=== PATIENT | male | born 1945 | race Caucasian/White ===

== ENCOUNTER 2023-10-23 13:56 | Outpatient (RCR) | payer MEDICARE, OTHER, SELFPAY | END 2023-10-23 23:59 | disposition home or self-care (01) | LOC: RPT 13:56 | PROVIDERS: ATTENDING PHYSICIAN Student in an Organized Health Care Education/Training Program | DX: M76.32 Iliotibial band syndrome, left leg (principal); M25.572 Pain in left ankle and joints of left foot; Z73.6 Limitation of activities due to disability | CPT/HCPCS: 97010; 97110; 97112; 97162 ==

== ENCOUNTER 2023-10-28 12:27 | Outpatient (RCR) | payer MEDICARE, OTHER, SELFPAY | END 2023-10-30 07:36 | disposition home or self-care (01) | LOC: RPT 12:27 | PROVIDERS: ATTENDING PHYSICIAN Student in an Organized Health Care Education/Training Program | DX: M76.32 Iliotibial band syndrome, left leg (principal); M25.572 Pain in left ankle and joints of left foot; Z73.6 Limitation of activities due to disability | CPT/HCPCS: 97010; 97110 ==

== ENCOUNTER → 2024-06-11 13:34 | Outpatient (REF) | payer MEDICARE, OTHER, SELFPAY | LOC: HWRAD 13:34 | PROVIDERS: ATTENDING PHYSICIAN Family Medicine | DX: R35.0 Frequency of micturition (principal) | CPT/HCPCS: 76770 ==

== ENCOUNTER → 2024-10-07 12:47 | Outpatient (REF) | payer MEDICARE, OTHER, SELFPAY | LOC: RCS 12:47 | PROVIDERS: ATTENDING PHYSICIAN Family Medicine | DX: I10 Essential (primary) hypertension (principal); H53.2 Diplopia; I25.10 Atherosclerotic heart disease of native coronary artery without angina pectoris | CPT/HCPCS: 93306; 93880 ==

== ENCOUNTER → 2024-11-02 10:33 | Outpatient (REF) | payer MEDICARE, OTHER, SELFPAY | LOC: PAVMRI 10:33 | PROVIDERS: ATTENDING PHYSICIAN Family Medicine | DX: H53.2 Diplopia (principal); H53.8 Other visual disturbances; H53.123 Transient visual loss, bilateral | CPT/HCPCS: 70543; 70544; 70553; A9575 ==

== ENCOUNTER → 2025-03-09 13:01 | Outpatient (REF) | payer MEDICARE, OTHER, SELFPAY | LOC: RAD 13:01 | PROVIDERS: ATTENDING PHYSICIAN Family Medicine | DX: M25.552 Pain in left hip (principal) | CPT/HCPCS: 73502 ==

== ENCOUNTER 2025-06-20 23:57 | Observation (INO) | payer MEDICARE, OTHER, SELFPAY ==
[2025-06-20] VITALS (7 sets, daily range): BP systolic 113–137; BP diastolic 61–76
[2025-06-20 17:05] LABS: Hematocrit 44.2 % (39.0-52.0); Hemoglobin 15.5 g/dL (13.0-18.0); Mean Corp Hgb Conc. 35.1 g/dL (33.0-37.0); Mean Corpuscular Volume 90.8 fL (80.0-94.0); Nucleated Red Blood Cells % 0 % (-); Platelet Count 191 10^3/uL (130-400); Red Cell Dist. Width 12.0 % (11.5-14.5)
[2025-06-20 17:22] LABS: ALT (SGPT) 27 U/L (0-50); AST (SGOT) 28 U/L (17-59); Albumin 4.9 g/dl (3.5-5.0); Alkaline Phosphatase 82 U/L (38-126); Blood Urea Nitrogen 21 mg/dl (9-20); Calcium 10.1 mg/dl (8.4-10.2); Carbon Dioxide 25 mmol/L (22-30); Chloride 100 mmol/L (98-107); Glucose 155 mg/dl (70-99); Lipase 128 U/L (23-300); Potassium 4.3 mmol/L (3.5-5.1); Sodium 135 mmol/L (135-145); Total Protein 7.5 g/dl (6.3-8.2); eGFR > 60.00
[2025-06-20] MEDS: NSS 500 IV (18:30)
[2025-06-20] MEDS: ZOFRAN 4 MG IV (18:31)
[2025-06-20] MEDS: DILAUDID 0.5 MG IV (18:31)
--- NOTE | 2025-06-20 19:31 | ED.GENMED ---
History of Present Illness
General
Chief Complaint: Abdominal Symptoms
Source: patient
Exam Limitations: none
Time Seen by Provider: 06/20/25 18:18
Nursing documentation reviewed up to this point in time: agreed with
History of Present Illness
History of Present Illness:
Patient presents to ED secondary to persistent abdominal pain associate with nausea and vomiting, and approximately 2 hours after having had ham sandwich for lunch. Patient states that he has had multiple similar episodes in the past, which
resolved quickly. Abdominal pain described as sharp, without any alleviating or exacerbating factors. Denies fever or chills. Denies diarrhea. Denies trauma. Denies recent change in medications.
Past History
Past History
ED Past Medical History: HTN and Hypercholesterolemia
ED Past Surgical History: Appendectomy, Cardiac (Stents), Orthopedic (Rotator cuff repair) and Other (Hernia repair)
Social History
Tobacco: Non-smoker
Alcohol: Occasional
Personal:
Living: with family
Review of Systems
Review of Systems
Allergies reviewed?: Yes
All Other Systems: ROS reviewed and negative except as documented in HPI and ROS
Constitutional: Reports no symptoms
ABD/GI: Reports abdominal pain, nausea and vomiting; Denies diarrhea
: Reports no symptoms
Musculoskeletal: Reports no symptoms
Skin: Reports no symptoms
Neurological: Reports no symptoms
Phy Exam
Physical Exam
Physical Exam:
Physical Exam
General: mild painful distress, not acutely ill. afebrile
Head: nc/at. eomi
Neck: supple. normal range of motion
Heart: s1/s2 regular rate and rhythm
Lungs: no acute respiratory distress. clear bilaterally
Abdomen: normal bowel sounds. no distention. mild epigastric/RUQ tenderness to palpation
Neuro: alert and oriented x 3. no focal neurological deficits
Skin: no rash
Psychiatric: well kept. interactive and cooperative
Extremities: no edema. no calf tenderness.
Course
Orders/Labs/Results
Orders:
Orders
06/20/25 16:38
Electrocardiogram (*1) Urgent
Reason for Study: Abdominal Pain
EKG- Treatment ONCE
06/20/25 16:54
CMP [Comprehensive Metabolic Panel] Urgent
Complete Blood Count/With Diff Urgent
Lipase Urgent
06/20/25 18:22
0.9% Sodium Chloride 500 ml [Nss] 500 ml IV BOLUS
HYDROmorphone [Dilaudid] 0.5 mg IV NOW STA
Ondansetron Injectable [Zofran] 4 mg IV NOW STA
US Abdomen Complete/Upper Urgent
Comment:
Reason For Exam: RUQ pain
06/20/25 20:42
CT Abd/pelvis W Iv Cont Urgent
Comment:
Reason For Exam: Right sided abdominal pain
06/20/25 23:17
0.9% Sodium Chloride 250 ml [Nss] 250 ml IV BOLUS
06/20/25 23:35
Admit/Transfer Patient As Directed
Co-Sign Provider:
Level of Care: Observation services
Assign to:: Medical/Surgical
Physician / Group: Amari Quintanilla
Diagnosis: Diverticulosis
06/20/25 23:36
Code Status As Directed
Resuscitation Status: Full Code
PRN Pain Medication Management As Directed
May give lesser potent ordered pain med per pt: Yes
preference::
Protocol:: Medication orders for pain may be administered in a
manner that supports deferring to patient preference
when the pt is:
- Requesting an ordered lesser potent pain medication.
Least to most potent pain medications are defined
as: acetaminophen < NSAID < tramadol < opioids
(morphine, oxycodone, hydromorphone).
- Requesting a lesser dose of the same medication IF
ORDERED.
- Requesting a less intrusive route of administration
if both routes are prescribed by the provider (PO <
IV).
06/21/25 01:08
Acetaminophen [Tylenol] 650 mg PO Q4HPRN PRN
HYDROmorphone [Dilaudid] 0.5 mg IV Q4HPRN PRN
Ketorolac [Toradol] 10 mg IV Q6HPRN PRN
Lactated Ringers [Lr] 1,000 ml IV 80 mls/hr
Nitroglycerin Sublingual [Nitrostat (Sublingual)] 0.4 mg SL [id number] PRN chest pain
Ondansetron Injectable [Zofran] 4 mg IV Q6HPRN PRN
06/21/25 01:08
Activity As Directed
Activity Level: As Tolerated
Intake/ Output As Directed
Frequency: Per unit guidelines
Vital Signs As Directed
Frequency: Per unit guidelines
Weight As Directed
Frequency: Once
Comment: on admission
DX Deep Vein Thrombosis Video Routine
06/21/25 06:00
Abdomen Xray - 1 View [CR Abdomen - 1 View] IN AM
Comment:
Reason For Exam: follow up SBO
06/21/25 07:32
Basic Metabolic Panel IN AM
Complete Blood Count/No Diff IN AM
06/21/25 08:00
Aspirin Low Dose EC [Aspir Low (Enteric Coated)] 81 mg PO DAILY
Diltiazem Extended Release [Cardizem Cd] 120 mg PO DAILY
Finasteride [Proscar] 5 mg PO DAILY
06/21/25 18:00
Atorvastatin [Lipitor] 20 mg PO QPM
Enoxaparin Sodium [Lovenox] 40 mg SC QPM
Abnormal Lab Results
06/20/25
16:54
WBC 15.7 H 10^3/uL
(4.8-10.8)
MCH 31.8 H pg
(27.0-31.0)
MPV 10.7 H fL
(7.4-10.4)
Abs Immat Gran (auto) 0.1 H 10^3/uL
(0-0.05)
Absolute Neuts (auto) 13.1 H 10^3/uL
(1.4-6.5)
Absolute Monos (auto) 1.0 H 10^3/uL
(0.1-0.6)
Neutrophils % 83.6 H %
(42.2-75.2)
Lymphocytes % 8.5 L %
(20.5-51.1)
BUN 21 H mg/dl
(9-20)
Glucose 155 H mg/dl
(70-99)
Total Bilirubin 2.0 H mg/dl
(0.2-1.3)
06/20/25 16:54
06/20/25 16:54
Vital Signs
Initial and Last Documented VS:
Initial Vital Signs
Temp Pulse Resp BP Pulse Ox
97.5 F 71 16 115/69 99
06/20/25 16:35 06/20/25 16:35 06/20/25 16:35 06/20/25 16:35 06/20/25 16:35
Last Documented Vital Signs
Temp Pulse Resp BP Pulse Ox
98.1 F 75 16 148/79 96
06/22/25 07:35 06/22/25 11:14 06/22/25 07:35 06/22/25 11:14 06/22/25 07:35
MDM/Problems Addressed
MDM/Problems Addressed:
History, exam, and blood work concerning for biliary colic versus acute cholecystitis.
Ultrasound abdomen without acute findings. As such, with patient's presenting symptoms, will obtain CT abdomen pelvis
*Pulse Oximetry
SaO2: 99
Oxygen Mode of Delivery: Room air
Patient hypoxic: no
*Critical Care Note
Total Time (30-74mins, 75-104mins- exclusive of procedures): Not Applicable
ED Attending Note
-
Portions of this chart may have been created with voice recognition software.� Occasional wrong word or��sound alike� substitutions may have occurred due to the inherent limitations of voice recognition software.
Discharge Plan
Departure
Patient Disposition: Admit
Date of Disposition: 06/20/25
Time of Disposition: 23:18
Presentation/result/management discussed w/ accepting MD/DO: Hospitalist
Discharge Problem:
Abdominal pain
Interventions
Interventions:
*Risk Screen - Suicide Last Done: 06/20/25 16:35
*General Assessment Last Done: 06/20/25 18:35
*Neglect/Abuse Screening Last Done: 06/20/25 16:35
*ED- Fall Risk Assessment Last Done: 06/21/25 00:00
*ED COVID-19 Vaccine History Last Done: 06/20/25 18:35
*ED Influenza Vaccine History Last Done: 06/20/25 18:35
*Nursing Disposition Last Done: 06/21/25 01:15
[facility]gmex[facility] Assessment Last Done: 06/20/25 18:35
Discharge Date and Time
Discharge Date/Time: 06/21/25 01:16
--- NOTE | 2025-06-20 23:24 | HPS.HSE ---
Family Physician
-
Family Physician: Kun Bennett,
Chief Complaint
-
Abdominal pain
History of Present Illness
This is a 79-year-old male who has past medical history significant for hypertension, hyperlipidemia, CAD with angina status post cardiac cath with stents to distal PDA 2017,, prior history of diverticulosis presents to the emergency department with
an acute episode of abdominal pain.
Patient reports he woke up this morning and developed acute onset of bilateral lower quadrant abdominal pain. Reports sharp sensation that is nonradiating. It was associated with multiple bouts of nonbloody and nonbilious emesis. He had a bowel
movement in the morning that was nonbloody. He denied diarrhea today. He denied having any fevers but reported feeling cold. Denies any urinary symptoms.
Patient reported that he had a similar presentation about 2 weeks ago with sharp bilateral lower quadrant abdominal pain at that time he had large amounts of diarrhea and improvement in pain after the diarrheal bowel movement. He reports that he
does have intermittent constipation and his last bowel movement before today was 2 days ago. He is not on any laxatives. He denies any recent colonoscopy.
In the emergency department he was afebrile, blood pressure was 120/60 with a pulse of 86 and he was satting 94% on room air.
White count was 15.7 hemoglobin 15.5 platelet 191. His electrolytes BUN/creatinine were stable and unremarkable. Lipase was normal. LFTs were normal.
Ultrasound of the abdomen is negative for any abnormalities of the gallbladder, bile ducts or liver. CT scan of the abdomen pelvis showed mild fluid distention of the small bowel without gross dilation. Few small bowel loops to the right of the
midline in the mid abdomen relatively collapsed and examined transition point is difficult to identify with certainty. This could be nonspecific dysmotility versus gastroenteritis. There is possibility of a early partial small bowel obstruction.
8.4 mm pancreatic tail low-attenuation mass noted. Nonemergent MRI may be considered.
Medical History
Past Medical History
Past Medical History: Reports CAD (s/p stent to distal PDA, recurrent angina), HTN and Hypercholesterolemia
Past Surgical History: Reports Appendectomy
Social History
Tobacco: Non-smoker
Alcohol: Occasional
Drug: None
Personal:
Living: With Family
Employment: Retired
Family History
Family History: Not pertinent
Allergies / Home Medications
Allergies reflects when Allergies were last updated in [facility].
Home Medications with original date entered in [facility]
Allergy/Medication List:
Allergies
Allergy/AdvReac Type Severity Reaction Status Date / Time
No Known Allergies Allergy Verified 04/19/22 10:45
Home Medications
aspirin 81 mg tablet,delayed release 81 mg PO DAILY 04/10/18
nitroglycerin 0.4 mg sublingual tablet 0.4 mg sublingual [id number] PRN chest pain #25 tabs 04/10/18
atorvastatin 40 mg tablet 40 mg PO DAILY 06/30/19
diltiazem HCl 120 mg capsule,extended release 24 hr 120 mg PO DAILY 06/20/25
Review of Systems
-
Constitutional: Reports No Symptoms
EENT: Reports No Symptoms
Respiratory: Reports No Symptoms
Cardiac: Reports No Symptoms
Abdomen/GI: Reports Abdominal Pain, Nausea and Vomiting
: Reports No Symptoms
Musculoskeletal: Reports No Symptoms
Skin: Reports No Symptoms
Neurological: Reports No Symptoms
Endocrine: Reports No Symptoms
Hematologic/Lymphatic: Reports No Symptoms
Psych: Reports No Symptoms
Physical Exam
Vital Signs
Vital Signs
Temp Pulse Resp BP Pulse Ox
97.5 F 86 14 123/67 94
06/20/25 16:35 06/20/25 22:00 06/20/25 22:00 06/20/25 22:00 06/20/25 22:00
Physical Exam
General: Well Developed, Well Nourished and No Apparent Distress
HEENT: NormoCephalic, Moist mucous membranes and Atraumatic
Respiratory: Clear
Cardiac: S1/S2 and Regular Rhythm; No Murmur or Rub
GI: Soft, Non Tender, Non Distended and Normal Bowel Sounds; No Organomegaly
Rectal: Deferred by Provider
Musculoskeletal: No Clubbing, No Cyanosis and No Edema
Skin: No Rash
Neuro: Nonfocal/grossly intact
Laboratory Results
-
06/20/25 16:54
06/20/25 16:54
Laboratory Results
Total Bilirubin 2.0 mg/dl (0.2-1.3) H 06/20/25 16:54
AST 28 U/L (17-59) 06/20/25 16:54
ALT 27 U/L (0-50) 06/20/25 16:54
Alkaline Phosphatase 82 U/L (38-126) 06/20/25 16:54
Lipase 128 U/L (23-300) 06/20/25 16:54
Data Reviewed
-
CT Scan: Report Reviewed by me
Ultrasound: Report Reviewed by me
Lab Data: Labs Reviewed by me
Old Records: Reviewed
Impression/Plan
-
IMPRESSION:
Is a 79-year-old with past medical history significant for CAD status post PCI and stenting to PDA, hypertension, hyperlipidemia, prior appendectomy who presents to the emergency department with acute episode of abdominal pain nausea and vomiting
today. He is generally well-appearing, afebrile hemodynamically stable in no acute distress. Abdominal exam was benign. Labs shows no abnormalities except for WBC of 15. He has normal lipase LFTs, normal abdominal ultrasound. CT scan of the
abdomen pelvis is concerning for possible early small bowel obstruction versus gastroenteritis. There is no clear transition point noted but obstruction cannot be rule out entirely. Patient is currently well-appearing and in no distress.
+Flatulence
PLAN:
Abdominal pain�unclear etiology at this time, question enteritis versus possible bowel obstruction. Diverticulosis without diverticulitis.
-Admit to [facility]
-N.p.o. for now with as chips, sips of clear
-Pain control and antiemetic
-Patient has no indication for NG tube at this point so we will hold off for now
-Maintenance fluids with LR IV
-Serial examination
-Obtain flatplate x-ray in the morning to f/u
Pancreatic Lesion- 8.4 mm pancreatic tail low-attenuation mass. Further evaluation/characterization follow-up nonemergent MRI
- mri abdomen
CAD
-Continue his aspirin and statin
-Continue diltiazem for BP control
BPH
-Continue finasteride
DVT prophylaxis�Lovenox subcu
CODE STATUS�full code
[2025-06-21] VITALS (7 sets, daily range): BP systolic 112–151; BP diastolic 64–83; BMI 22.8; BMI 20.5
[2025-06-21] MEDS: LR 1000 IV ×2 (01:27→14:00)
[2025-06-21 08:00] LABS: Hematocrit 36.5 % (39.0-52.0); Hemoglobin 12.8 g/dL (13.0-18.0); Mean Corp Hgb Conc. 35.1 g/dL (33.0-37.0); Mean Corpuscular Volume 91.5 fL (80.0-94.0); Platelet Count 156 10^3/uL (130-400); Red Cell Dist. Width 12.2 % (11.5-14.5)
[2025-06-21 08:38] LABS: Blood Urea Nitrogen 20 mg/dl (9-20); Calcium 9.0 mg/dl (8.4-10.2); Carbon Dioxide 27 mmol/L (22-30); Chloride 106 mmol/L (98-107); Estimated Creatinine Clearance 47 ml/min; Glucose 86 mg/dl (70-99); Potassium 4.2 mmol/L (3.5-5.1); Sodium 135 mmol/L (135-145); eGFR > 60.00
[2025-06-21] MEDS: PROSCAR 5 MG PO (09:01)
[2025-06-21] MEDS: CARDIZEM CD 120 MG PO (09:01)
[2025-06-21] MEDS: ASPIR LOW (ENTERIC COATED) 81 MG PO (09:01)
--- NOTE | 2025-06-21 11:08 | CM ---
Addendum entered by Alba Gomez 06/21/25 11:19:
PCP: Kun Bennett
Rx: [facility] in [place].
Original Note:
Chart reviewed. Met with pt and bedside. IA completed. IMM completed in ED. Lives with at home in an apartment with no steps at the entrance.Independent at home with ADLs and IADLs. NO hx of HH, O2, SNF or DME. NO insecurities
identified.Confirmed PCP, Rx, insurance and drug coverage.
GI workup still in process
Plan: DC home no needs
--- NOTE | 2025-06-21 11:25 | W.PN.HOSP.TC ---
Today's Communication/Plan
-
Start CLD and advance as tolerated
Monitor for recurrence of abdomen pain
Follow-up MRI abdomen
Bowel regimen
Assessment / Plan
Assessment / Plan
#Abdomen pain
- DDx include IBS (or other functional bowel disorder), biliary colic, nephrolithiasis; less likely infectious or obstructive
- CT on arrival showed mildly distended bowel loops though no signs of obstruction/transition point
- Repeat abdomen x-ray this morning fairly unchanged, redemonstrated mildly distended bowel loops
- RUQ ultrasound was without signs of cholecystitis or cholelithiasis; showed mild steatohepatitis
- Patient states he has had the symptoms for 'months', at times are improved with defecation
- Also states he has had cycles of diarrhea and constipation, has not been regular in some time
- As of this morning symptomatically is resolved, nontender on exam
- Would likely benefit from OP GI eval for colonoscopy
- Will monitor clinically here, provide bowel regimen
- Start CLD and ADAT, monitor for symptom recurrence
#Pancreatic lesion
- CT on arrival showed 8.4 mm pancreatic tail, low attenuating mass
- Concern for malignancy versus other findings such as pseudocyst though less likely
- Cannot completely rule out that this is contributing to his abdominal symptoms
- MRI abdomen with and without contrast ordered, will follow-up results
#CAD s/p PCI of the PDA
#Stable angina
#Dyslipidemia
- Home regimen includes aspirin, moderate intensity statin, diltiazem
- Also currently on as needed nitroglycerin SL tablet
- No signs of ACS here, last LDL 49
#Primary hypertension
- No known history of hypertensive systemic disease
- Not currently on first-line antihypertensives
- Remains on diltiazem XR 120 mg daily
- BP well controlled, CTM
#BPH
-Stable on home finasteride
#Status post appendectomy
Diet: Start CLD and advance as tolerated to LRD
Thromboprophylaxis: SQ Lovenox
CODE STATUS: Full code
Disposition: Home when medically stable
Anticipated Discharge: 24 - 48 hours
Subjective/Interval History
-
Date of Service: June 21, 2025
Seen and examined at bedside. No acute events reported overnight. AFVSS this morning
Abdomen x-ray this morning with mildly dilated small bowel loops though no transition points for signs of worsening obstruction. Patient states his symptoms have since resolved, denies any abdomen pain or other symptoms this morning. States it was
a sharp 'stabbing pain when present. Has been intermittently occurring for months now. States that at times he has had symptoms and were relieved by bowel movements. Over the last couple of months he does mention alternating between diarrhea and
constipation
Denies any other new complaints this morning. Labs are stable
Objective Data
-
Labs:
Laboratory Results
06/21/25
07:32
WBC 9.8
Hgb 12.8 L
Hct 36.5 L
Plt Count 156
Sodium 135
Potassium 4.2
Chloride 106
Carbon Dioxide 27
BUN 20
Creatinine 1.1
Glucose 86
Calcium 9.0
Vital Signs:
Vital Signs
Temp Pulse Resp BP Pulse Ox
98 F 67 18 138/83 98
06/21/25 07:47 06/21/25 09:01 06/21/25 07:47 06/21/25 09:01 06/21/25 07:47
Review of Systems
-
History Source: Patient
All other systems: Reviewed and negative
Physical Exam
-
General: Well Developed, No Apparent Distress and Other (Thin and frail)
HEENT: Normocephalic, Atraumatic, Moist Mucous Membranes and Anicteric
Respiratory: Clear to Auscultation and Non Labored Respirations; Negative Accessory Resp Muscle Use
Cardiac: Regular Rhythm and S1/S2; Negative Murmur, Rub or Gallop
GI: Soft, Nontender, Nondistended and Normal Bowel Sounds; Negative Organomegaly
Musculoskeletal: No Clubbing, No Cyanosis and No Edema
Skin: Warm and Dry; Negative Rash
Neuro: AO x 3, Nonfocal/Grossly Intact and Central Nerve's Intact
Psych: Calm
Data Reviewed
-
Labs: Labs Reviewed by me, Discussed with Patient and Discussed with Family
[2025-06-21] MEDS: MIRALAX 17 GRAMS PO (12:20)
[2025-06-21] MEDS: SENOKOT-S 1 TABLET PO ×2 (12:20→19:38)
[2025-06-21] MEDS: LOVENOX 40 MG SC (17:06)
[2025-06-21] MEDS: LIPITOR 20 MG PO (17:06)
[2025-06-22] MEDS: LR 1000 IV (04:44)
[2025-06-22 07:35] VITALS: BP 180/87
[2025-06-22] MEDS: ASPIR LOW (ENTERIC COATED) 81 MG PO (08:23)
[2025-06-22] MEDS: PROSCAR 5 MG PO (08:23)
[2025-06-22] MEDS: SENOKOT-S 1 TABLET PO (08:23)
[2025-06-22] MEDS: CARDIZEM CD 120 MG PO (08:23)
--- NOTE | 2025-06-22 08:48 | W.PN.HOSP.TC ---
Today's Communication/Plan
-
Advance diet as tolerated
Repeat abdomen x-ray
Establish OP GI follow-up for colonoscopy and ERCP/EUS
Monitor abdomen
Assessment / Plan
Assessment / Plan
#Abdomen pain
- DDx include IBS (or other functional bowel disorder), symptomatic pancreatic lesions; less likely infectious or obstructive
- CT on arrival showed mildly distended bowel loops though no signs of obstruction/transition point
- RUQ ultrasound was without signs of cholecystitis or cholelithiasis; showed mild steatohepatitis
- MRI abdomen with 4 pancreatic cystic lesions as described below, cannot rule out IPMN for pseudocyst
- Patient states he has had the symptoms for 'months', at times are improved with defecation
- Also states he has had cycles of diarrhea and constipation, has not been regular in some time
- Symptomatically improved however had recurrence with regular diet this morning (06/22)
Plan
- Would likely benefit from OP GI eval for colonoscopy and EUS/ERCP
- Will monitor clinically here, provide bowel regimen
- ADAT and monitor abdomen exam
- Repeat abdomen x-ray this morning
- Consider dicyclomine empirically, suppository
#Pancreatic cystic lesions
- CT on arrival showed 8.4 mm pancreatic tail, low attenuating mass
- MRI abdomen w/ + w/o contrast showed 4 pancreatic cysts concerning for IPMN or pseudocyst
- Cannot completely rule out that this is contributing to his abdominal symptoms
- Would benefit from EUS/ERCP, likely on the outpatient basis
#CAD s/p PCI of the PDA
#Stable angina
#Dyslipidemia
- Home regimen includes aspirin, moderate intensity statin, diltiazem
- Also currently on as needed nitroglycerin SL tablet
- No signs of ACS here, last LDL 49
#Primary hypertension
- No known history of hypertensive systemic disease
- Not currently on first-line antihypertensives
- Remains on diltiazem XR 120 mg daily
- BP well controlled, CTM
#BPH
-Stable on home finasteride
#Status post appendectomy
Diet: FLD, ADAT
Thromboprophylaxis: SQ Lovenox
CODE STATUS: Full code
Disposition: Home when medically stable
Discussed with gastroenterology who is arranging for outpatient follow-up.
Anticipated Discharge: Within 24 hours
Subjective/Interval History
-
Date of Service: June 22, 2025
Seen and examined at bedside. No acute events reported overnight. AFVSS this morning, blood pressure elevated prior to morning meds
Denies any new complaints this morning. Requesting to have diet advanced from full liquids. After breakfast he did develop recurrence of discomfort though not as severe as previous. States he has not had bowel movement since Friday afternoon, no
flatus this morning
Otherwise denies any new complaints.
Objective Data
-
Labs:
Laboratory Results
06/22/25
08:37
WBC Pending
Hgb Pending
Hct Pending
Plt Count Pending
Sodium Pending
Potassium Pending
Chloride Pending
Carbon Dioxide Pending
BUN Pending
Creatinine Pending
Glucose Pending
Calcium Pending
Vital Signs:
Vital Signs
Temp Pulse Resp BP Pulse Ox
98.1 F 76 16 180/87 96
06/22/25 07:35 06/22/25 08:23 06/22/25 07:35 06/22/25 08:23 06/22/25 07:35
I&O
06/21/25 06/22/25 06/23/25
06:59 06:59 06:59
Intake Total 0 / 1920
Output Total 0 / 0
Balance -280 / -280
Review of Systems
-
History Source: Patient
All other systems: Reviewed and negative
Physical Exam
-
General: Well Developed, No Apparent Distress and Comfortable
HEENT: Normocephalic, Atraumatic, Moist Mucous Membranes and Anicteric
Respiratory: Clear to Auscultation and Non Labored Respirations; Negative Accessory Resp Muscle Use
Cardiac: Regular Rhythm and S1/S2; Negative Murmur, Rub or Gallop
GI: Soft, Nontender, Nondistended and Normal Bowel Sounds; Negative Organomegaly
Musculoskeletal: No Clubbing, No Cyanosis and No Edema
Skin: Warm and Dry; Negative Rash or Jaundice
Neuro: AO x 3, Nonfocal/Grossly Intact and Central Nerve's Intact; Negative Tremors
Psych: Calm
Data Reviewed
-
Labs: Labs Reviewed by me, Discussed with Patient and Discussed with Family
[2025-06-22 08:56] LABS: Hematocrit 40.3 % (39.0-52.0); Hemoglobin 13.8 g/dL (13.0-18.0); Mean Corp Hgb Conc. 34.2 g/dL (33.0-37.0); Mean Corpuscular Volume 90.6 fL (80.0-94.0); Nucleated Red Blood Cells % 0 % (-); Platelet Count 148 10^3/uL (130-400); Red Cell Dist. Width 12.2 % (11.5-14.5)
[2025-06-22 09:15] LABS: Blood Urea Nitrogen 13 mg/dl (9-20); Calcium 9.3 mg/dl (8.4-10.2); Carbon Dioxide 27 mmol/L (22-30); Chloride 105 mmol/L (98-107); Estimated Creatinine Clearance 57 ml/min; Glucose 104 mg/dl (70-99); Potassium 4.0 mmol/L (3.5-5.1); Sodium 139 mmol/L (135-145); eGFR > 60.00
[2025-06-22 11:14] VITALS: BP 148/79
[2025-06-22] MEDS: DULCOLAX 10 MG PO (12:29)
[2025-06-22] MEDS: SENNA SYRUP 8.8 MG PO (12:29)
--- NOTE | 2025-06-22 12:46 | W.DCSUMMARY ---
Discharge Summary
Discharge Data
Date of Admission: 06/20/25
Date of Discharge: 06/22/25
Total time spent discharging patient (in min): 36
-
Pending Results: No
Hospital Course
Discharging provider: Jose Rafael aMza DO
Discharge disposition: Home
Primary discharge diagnoses:
Unspecified abdomen pain -- suspected IBS or other functional bowel disorder
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
Pancreatic atrophy
Constipation
Mild hepatic steatosis
Chronic discharge diagnoses:
CAD s/p PCI of posterior descending artery
Stable angina
Primary hypertension
Dyslipidemia
BPH
Status post appendectomy
Hospital course:
79-year-old male that presented to the hospital with right sided abdomen pain. Pain has been ongoing, intermittent and lasting for timeframe of months, occasionally improved with defecation. Presented to the hospital due to pain more significant
than previous episodes. Upon arrival had CT and abdomen ultrasound that did not show any signs of cholecystitis, cholelithiasis, bile duct dilation, or other acute findings. Did demonstrate some mild dilation of the small bowel that was persistent
and stable on CT and multiple abdomen x-rays. He was initially held n.p.o. due to concerns of bowel obstruction initially however had quick clinical improvement and was trialed on clear liquid diet which was advanced to low residue diet as he
tolerated. He did have a recurrence of discomfort once on low residue diet. Repeat abdomen x-ray was unchanged and without signs of small bowel obstruction. He was started on a bowel regimen and passed stool on morning of discharge. Discussed
with gastroenterology in the hospital who arranged outpatient follow-up in office on 07/04/2025. Was ordered standing senna twice daily with as needed MiraLAX daily for bowel regimen. Was started on dicyclomine 4 times daily as needed for abdomen
pain with caution to limit usage while constipated.
Initial CT scan did show pancreatic tail lesion of near 8 mm in size. Had follow-up MRI abdomen with and without contrast that showed 4 discrete pancreatic cystic lesions of up to 1.6 cm in side within the pancreatic tail consistent with IPMN
versus pseudocyst. Discussed with gastroenterology here who recommended outpatient follow-up for repeat imaging, do not feel there is need for ERCP/EUS at this time. Lipase was normal, lower suspicion that these lesions were etiology of his pain
though cannot be ruled out.
Pertinent imaging findings:
Abdomen ultrasound (06/20/2025)
IMPRESSION: Mild fatty infiltration of liver. No gallstones. No sonographic evidence of acute cholecystitis. No bile duct dilatation. The pancreas is obscured by bowel gas. No hydronephrosis. Bilateral renal cysts
CT A/P with IV contrast (06/20/2025)
IMPRESSION: Diverticulosis without acute diverticulitis. Constipation with moderate colonic fecal burden. Mild fluid distention of the small bowel, without gross dilatation. A few small bowel loops to the right of midline in the mid abdomen are
relatively collapsed. An exact transition point is difficult to identify with certainty. This could represent nonspecific dysmotility/gastroenteritis. The possibility of early or partial small bowel obstruction cannot be entirely excluded proper
clinical setting. 8.4 mm pancreatic tail low-attenuation mass. Further evaluation/characterization follow-up nonemergent MRI may be considered. 2 mm nonobstructing calculus in the lower pole left kidney. Renal cysts.
MRI abdomen without and with contrast (06/21/2025)
IMPRESSION:
1. Multiple (4) pancreatic cysts measuring up to 1.6 cm in size in the pancreatic tail. Diagnostic possibilities are (1) intraductal papillary mucinous tumors or (2) pancreatic pseudocysts.
2. Mild diffuse pancreatic parenchymal atrophy.
3. Moderate chronic bilateral renal disease.
4. Moderate number of bilateral renal cysts.
5. Small bilateral adrenal adenomas.
6. Severe diverticulosis in the descending and sigmoid colon.
7. Moderate multilevel lumbar discogenic degenerative disease.
AXR (06/21/2025)
IMPRESSION:
1. Several mildly prominent loops of small bowel project over the mid abdomen, grossly unchanged compared to prior CT.
2. No radiographic evidence of complete intestinal obstruction.
AXR (06/22/2025)
IMPRESSION: Nonobstructed bowel gas pattern. Prominent loops of small bowel seen on yesterday's radiographs are not seen on the current study.
Inpatient procedures: N/A
Follow-up:
Family doctor within 1 week of discharge
Gastroenterology on 07/04/2025 at noon
Discharge Plan
-
Patient Disposition: Home (Routine Discharge)
Discharge Diagnosis/Procedures: Abdomen pain
Pancreatic cystic lesions
Possible irritable bowel syndrome
Condition: Fair
Diet: As tolerated, Low Cholesterol and Other diet
Additional Diets: Small, frequent meals up to 6X daily until seen by GI
Activity: As tolerated
Driving Restrictions: No driving for 24 hours
Bathing Restrictions: None
Blood Work: None
Others Tests: Follow-up with gastroenterology for colonoscopy, repeat imaging of your pancreatic cysts
Referrals:
Toney Streeter MD [Active, Gastroenterology] - 07/04/25 12:00 pm
Referral Note: If there is a cancellation, they will call you for an earlier office appointment
Kun Bennett DO [Family Provider, Family Practice]
Additional Discharge Medication Instructions: Use dicyclomine 10 mg as needed 4 times daily for abdomen pain. If you are feeling constipated avoid dicyclomine as it can slightly worsen constipation
Use senna twice daily and MiraLAX once daily as needed for constipation
Prescriptions:
New
dicyclomine 10 mg Capsule
10 mg PO QIDPRN PRN (Reason: Abd pain) Qty: 120 0RF
sennosides-docusate sodium [Senna Plus] 8.6-50 mg Tablet
1 tab PO BID Qty: 60 0RF
polyethylene glycol 3350 [Miralax] 17 gram powder in packet
17 g PO DAILY PRN (Reason: constipation) Qty: 30 0RF
Continued
aspirin 81 MG tablet,delayed release (DR/EC)
81 mg PO DAILY
nitroglycerin 0.4 MG tablet, sublingual
0.4 mg sublingual [id number] PRN (Reason: chest pain) Qty: 25 2RF
atorvastatin 40 MG tablet
20 mg PO DAILY
diltiazem HCl 120 mg capsule,extended release 24hr
120 mg PO DAILY
finasteride 5 mg tablet
5 mg PO DAILY
Discharge Orders:
Discharge Patient (As Directed); Ordered 06/22/25
Ordered By: Jose Rafael Maza
Discharge Date and Time
Print Language: [place]
--- NOTE | 2025-06-22 17:28 | CM ---
Pt discharged to home with : no needs
== END 2025-06-22 14:35 | disposition home or self-care (01) ==
LOC: 4 EAST ACU 23:57
PROVIDERS: Nurse Practitioner Family; Student in an Organized Health Care Education/Training Program; ADMITTING PHYSICIAN Internal Medicine; ATTENDING PHYSICIAN Internal Medicine; EMERGENCY PHYSICIAN Emergency Medicine; FAMILY PHYSICIAN Family Medicine
DX: R10.9 Unspecified abdominal pain (principal); R11.2 Nausea with vomiting, unspecified; K63.89 Other specified diseases of intestine; K86.2 Cyst of pancreas; D35.02 Benign neoplasm of left adrenal gland; D35.01 Benign neoplasm of right adrenal gland; K57.30 Diverticulosis of large intestine without perforation or abscess without bleeding; E78.00 Pure hypercholesterolemia, unspecified; I10 Essential (primary) hypertension; E78.5 Hyperlipidemia, unspecified; I25.118 Atherosclerotic heart disease of native coronary artery with other forms of angina pectoris; K86.89 Other specified diseases of pancreas; N40.0 Benign prostatic hyperplasia without lower urinary tract symptoms; K76.0 Fatty (change of) liver, not elsewhere classified; N28.1 Cyst of kidney, acquired; N20.0 Calculus of kidney; Z90.49 Acquired absence of other specified parts of digestive tract; Z95.5 Presence of coronary angioplasty implant and graft; Z79.899 Other long term (current) drug therapy; Z87.74 Personal history of (corrected) congenital malformations of heart and circulatory system; Z79.82 Long term (current) use of aspirin
CPT/HCPCS: 74018; 74177; 74183; 76700; 80048; 80053; 83690; 85025; 85027; 93005; 96374; 96375; 99285; A9575; G0378; Q9967

== ENCOUNTER 2025-08-01 06:26 | Day surgery (SDC) | payer MEDICARE, OTHER, SELFPAY | END 2025-08-01 11:55 | disposition home or self-care (01) | LOC: GI 06:26 | PROVIDERS: ATTENDING PHYSICIAN Internal Medicine Gastroenterology; FAMILY PHYSICIAN Family Medicine | DX: Z12.11 Encounter for screening for malignant neoplasm of colon (principal); K57.30 Diverticulosis of large intestine without perforation or abscess without bleeding; K64.8 Other hemorrhoids; R10.9 Unspecified abdominal pain; K29.70 Gastritis, unspecified, without bleeding; D12.3 Benign neoplasm of transverse colon; K29.50 Unspecified chronic gastritis without bleeding; Z86.0100 Personal history of colon polyps, unspecified | CPT/HCPCS: 45385; 43239; 88305; 88342 ==